=== PATIENT | female | born 1970 | race Caucasian/White ===

== ENCOUNTER 2016-10-25 03:06 | Emergency (ER) | payer OTHER ==
[~2016-10-25] VITALS: Ht 167.6 cm; Wt 107.6 kg
[~2016-10-25 03:06] MED LIST: NAPROSYN500 MG PO; NOHOMEMEDS
[2016-10-25] MEDS ORDERED: TRAMADOL HCL50 MG PO (03:48)
[2016-10-25] MEDS ORDERED: VALIUM5 MG PO (03:48)
[2016-10-25 04:19] VITALS: BP 156/96
== END 2016-10-25 04:33 | disposition home or self-care (01) ==
LOC: EME 03:06
DX: M62.838 Other muscle spasm (principal); M54.2 Cervicalgia
CPT/HCPCS: 99281; 99284

== ENCOUNTER 2016-11-05 08:42 | Emergency (ER) | payer OTHER ==
[~2016-11-05] VITALS: Ht 170.2 cm; Wt 107.4 kg
[~2016-11-05 08:42] MED LIST changes: +TRAMADOL HCL50 MG PO; +VALIUM5 MG PO
[2016-11-05] MEDS ORDERED: PREDNISONE20 MG PO (11:53)
[2016-11-05] MEDS ORDERED: PERCOCET 5/31 TABLET PO (11:53)
[2016-11-05] MEDS ORDERED: FLEXERIL10 MG PO (11:53)
[2016-11-05 12:11] VITALS: BP 139/74
== END 2016-11-05 12:20 | disposition home or self-care (01) ==
LOC: EME 08:42
DX: S16.1XXA Strain of muscle, fascia and tendon at neck level, initial encounter (principal); X50.1XXA Overexertion from prolonged static or awkward postures, initial encounter; Y93.C9 Activity, other involving computer technology and electronic devices
CPT/HCPCS: 72040; 99281; 99284; J1885; J2270; J7512